=== PATIENT | male | born 1995 | race Caucasian/White ===

== ENCOUNTER 2023-01-17 08:09 | Emergency (ER) | payer MEDICAID ==
[~2023-01-17] VITALS: Ht 175.3 cm; Wt 77.3 kg
[2023-01-17 08:13] VITALS: BP 118/69
[2023-01-17] MEDS ORDERED: CLIN300C54 PO (09:05)
== END 2023-01-17 09:13 | disposition home or self-care (01) ==
LOC: ER 08:09
DX: K04.7 Periapical abscess without sinus (principal); F12.10 Cannabis abuse, uncomplicated; F15.10 Other stimulant abuse, uncomplicated; Z88.5 Allergy status to narcotic agent; Z88.1 Allergy status to other antibiotic agents
CPT/HCPCS: 99283

== ENCOUNTER 2023-05-18 15:49 | Emergency (ER) | payer MEDICAID ==
[~2023-05-18] VITALS: Ht 172.7 cm; Wt 66.0 kg
[2023-05-18 17:47] VITALS: BP 116/54; PULSE 58; RESP 17; TEMP 98.9; O2SAT 98
== END 2023-05-18 17:47 | disposition home or self-care (01) ==
LOC: ER 15:49
DX: S06.0X0A Concussion without loss of consciousness, initial encounter (principal); X58.XXXA Exposure to other specified factors, initial encounter; Y93.89 Activity, other specified; Y92.89 Other specified places as the place of occurrence of the external cause; Y99.8 Other external cause status
CPT/HCPCS: 70450; 99284

== ENCOUNTER 2023-05-30 17:27 | Emergency (ER) | payer MEDICAID ==
[~2023-05-30] VITALS: Ht 175.3 cm; Wt 97.6 kg
[2023-05-30 18:03] VITALS: BP 109/70; PULSE 53; RESP 18; TEMP 97.6; O2SAT 99
== END 2023-05-30 21:58 | disposition left against medical advice (07) ==
LOC: ER 17:28
DX: N48.29 Other inflammatory disorders of penis (principal); Z53.21 Procedure and treatment not carried out due to patient leaving prior to being seen by health care provider
CPT/HCPCS: 99281